=== PATIENT | female | born 1970 | race Hispanic/Latino ===

== ENCOUNTER 2017-07-22 21:19 | Emergency (ER) | payer BC ==
[~2017-07-22] VITALS: Ht 170.2 cm; Wt 122.5 kg
[~2017-07-22 21:19] MED LIST: AMLODIPINE BESY10 MG PO; AMOXICILLIN500 M1 PO; GLYBURIDE-METF1 EAC1 PO; MAGNESIUM500 MG PO; MICARDIS40 MG PO; NORVASC10 MG PO
--- OUTSIDE RECORDS SUMMARY | 2017-07-22 21:22 | XMS REPORT ---
Author Author [facility] Address Unknown Phone Unavailable Care Team Providers Care Superintendent Maintenance Name Role Phone BENI HOWARD Unavailable Unavailable Problems This patient has no known problems. Allergies, Adverse Reactions, Alerts This patient has no known allergies or adverse reactions. Medications This patient has no known medications. Results Test Description Test Time Test Comments Text Results Atomic Results Result Comments CT ABDOMEN/PELVIS WO [place] [id number] Patient Name: JACQUI GREEN MR #: [id number] : 1970 Age/Sex: 46/F Req #: [id number] Adm Physician: Ordered by: BENI HOWARD MD Report #: [id number] Location: ER Room/Bed: ___ Procedure: [id number] CT/CT ABDOMEN/PELVIS WO Exam Date: 03/05/17 Exam Time: 2325 REPORT STATUS: Signed EXAM: CT ABDOMEN AND PELVIS without IV CONTRAST DATE: 03/05/2017 10:40 PM Time stamp on Exam: 2321 hours INDICATION: Right flank pain COMPARISON: None TECHNIQUE: The abdomen and pelvis were scanned using a multidetector helical scanner. Coronal and sagittal reformations were obtained. Renal stone protocol performed. IV Contrast: None Oral Contrast: None CTDIvol has been reviewed. It is below the limits set by the Radiation Protocol Committee (RPC) . FINDINGS: LOWER THORAX: No consolidations LIVER: No masses BILIARY: The gallbladder has been removed. No ductal dilation. SPLEEN: No masses PANCREAS: No masses ADRENALS: No nodules RIGHT KIDNEY: Nonobstructing 5 mm and 2 mm stones in the inferior pole of the right kidney. LEFT KIDNEY: 8 mm nonobstructing stone in the superior pole of the left kidney. GI TRACT: No distention, wall thickening or evidence of obstruction. Normal appendix. VESSELS: Unremarkable PERITONEUM/ RETROPERITONEUM: No free air or fluid LYMPH NODES: No lymphadenopathy REPRODUCTIVE ORGANS: Unremarkable BLADDER: Unremarkable SOFT TISSUES: Unremarkable BONES: No suspicious bone lesions. IMPRESSION: Bilateral nephrolithiasis. No ureteral stones. No hydronephrosis. Signed by: Dr. Bozena Doty M.D. on 03/05/2017 11:44 PM Dictated By: BOZENA DOTY MD [id number] Transcribed By: DANIEL on 03/05/170 COPY TO: BENI HOWARD MD
[2017-07-22 22:17] LABS: BILIRUBIN,URINE NEGATIVE (NEGATIVE); CLARITY,URINE CLEAR (CLEAR); COLOR,URINE YELLOW (YELLOW); KETONES,URINE NEGATIVE (NEGATIVE); LEUKOCYTE ESTERASE ,URINE NEGATIVE (NEGATIVE); NITRITE,URINE NEGATIVE (NEGATIVE); PROTEIN,URINE DIPSTICK NEGATIVE (NEGATIVE); URINE UROBILINOGEN 0.2 mg/dL (0.2 - 1)
[2017-07-22 22:34] LABS: BACTERIA,URINE RARE /HPF; EPITHELIAL CELLS,URINE FEW /LPF; MUCUS,URINE FEW (RARE); RBC,URINE 0-5 /HPF (0-5); WBC,URINE (MAN) 0-5 /HPF (0-5)
[2017-07-22] MEDS ORDERED: NIFEDIPINE 10 MG CAP PO STA (23:10)
[2017-07-22] MEDS ORDERED: NIFEDIPINE 10 MG CAP ONE (23:12)
[2017-07-23 02:32] VITALS: BP 139/80
== END 2017-07-23 02:32 | disposition home or self-care (01) ==
LOC: ER 21:19
DX: M54.5 Low back pain (principal); I10 Essential (primary) hypertension; E11.9 Type 2 diabetes mellitus without complications; Z87.442 Personal history of urinary calculi
CPT/HCPCS: 81001; 87086; 99284

== ENCOUNTER → 2018-12-14 | Outpatient (CLI) | payer SELFPAY ==
--- NOTE | 2018-12-14 14:33 | Diagnostic Imaging Report ---
Exam: Bilateral Ankle Series. History: Osteoarthritis Comparison: None Findings: 3 views of the right ankle and 3 views of the left ankle were obtained. Left ankle: No acute fracture or dislocation. The ankle mortise is intact and symmetric. There is mild soft tissue swelling. Mild degenerative changes of the tibiotalar joint with posterior osteophyte formation. Prominent plantar calcaneal spur. Degenerative changes involve the midfoot. No significant ankle joint effusion. Right ankle:No acute fracture or dislocation. The ankle mortise is intact and symmetric. There is mild soft tissue swelling. Mild degenerative changes of the tibiotalar joint. Prominent plantar calcaneal spur. No significant ankle joint effusion. Impression: No acute osseous injury. Mild tibiotalar and mid foot degenerative changes bilaterally. Bilateral prominent lateral calcaneal spur. Signed by: Sohan Mixon MD on 12/14/2018 2:30 PM
== END ==
LOC: RAD 13:04
PROVIDERS: ATTEND Internal Medicine
DX: M19.072 Primary osteoarthritis, left ankle and foot (principal); M19.071 Primary osteoarthritis, right ankle and foot

== ENCOUNTER → 2020-03-08 | Outpatient (CLI) | payer BC | LOC: MAMMO 10:09 | PROVIDERS: ATTEND Internal Medicine | DX: Z12.31 Encounter for screening mammogram for malignant neoplasm of breast (principal) | CPT/HCPCS: 77067 ==

== ENCOUNTER 2021-08-28 23:23 | Observation (INO) | payer SELFPAY ==
[~2021-08-28] VITALS: Ht 170.2 cm; Wt 122.5 kg
[2021-08-28] MEDS ORDERED: ASPIRIN 81 MG CHEW TAB PO ONE (23:30)
[2021-08-28 23:42] LABS: BASOPHILS % 0.4 % (0.0-1.0); EOSINOPHILS # (AUTO) 0.1 (0.0-0.4); EOSINOPHILS % 0.8 % (0.0-6.0); HEMATOCRIT 36.3 % (34.2-44.1); HEMOGLOBIN 11.8 g/dL (12.0-16.0); LYMPHOCYTES # (AUTO) 2.1 (1.0-3.2); LYMPHOCYTES % 28.3 % (18.0-39.1); MEAN CORPUSCULAR HEMOGLOBIN 29.1 pg (28-32); MEAN CORPUSCULAR HGB CONC 32.5 g/dL (31-35); MEAN CORPUSCULAR VOLUME 89.4 fL (81-99); MONOCYTES # (AUTO) 0.7 (0.2-0.8); MONOCYTES % 8.9 % (4.4-11.3); NEUTROPHILS # (AUTO) 4.6 (2.1-6.9); NEUTROPHILS % 61.3 % (38.7-80.0); PLATELET COUNT 157 x10e3/uL (140-360); RED BLOOD COUNT 4.06 x10e6/uL (3.6-5.1); RED CELL DISTRIBUTION WIDTH 14.6 % (11.7-14.4)
[2021-08-28 23:54] LABS: CLARITY,URINE CLEAR (CLEAR); COLOR,URINE YELLOW (YELLOW); KETONES,URINE NEGATIVE (NEGATIVE); LEUKOCYTE ESTERASE ,URINE NEGATIVE (NEGATIVE); NITRITE,URINE NEGATIVE (NEGATIVE); PROTEIN,URINE DIPSTICK NEGATIVE (NEGATIVE); URINE UROBILINOGEN 0.2 mg/dL (0.2 - 1)
[2021-08-28 23:57] LABS: BACTERIA,URINE FEW /HPF; EPITHELIAL CELLS,URINE FEW /LPF; WBC,URINE (MAN) 0-5 /HPF (0-5)
[2021-08-29] VITALS (10 sets, daily range): BP systolic 133–177; BP diastolic 54–108
[2021-08-29 00:02] LABS: ALBUMIN/GLOBULIN RATIO 0.7 (0.8-2.0); ANION GAP 14.9 mmol/L (8-16); CALCIUM 8.4 mg/dL (8.4-10.2); CREATININE, SERUM 1.01 mg/dL (0.57-1.11); POTASSIUM 3.9 mmol/L (3.5-5.1)
[2021-08-29] MEDS ORDERED: SODIUM CHLORIDE 0.9% 1000ML 1,000 ML IV STA (00:07)
[2021-08-29] MEDS ORDERED: INSULIN REGULAR, HUMAN 100 UNIT/1 ML IV STA (00:07)
[2021-08-29 00:08] LABS: CREATINE KINASE MB 1.1 ng/mL (0-5.0)
[2021-08-29] MEDS ORDERED: Morphine 4mg Syringe 4 MG/ML INJ IV PRN (01:30)
[2021-08-29] MEDS ORDERED: ONDANSETRON HCL INJ 2MG/ML 2ML 2 MG/ML VIAL IV PRN ×2 (01:30→13:00)
[2021-08-29] MEDS ORDERED: IOPAMIDOL 370 MG/ML 200 ML INFUS..BTL INJ ONE (01:34)
[2021-08-29] MEDS ORDERED: SODIUM CHLORIDE 0.9% 50ML 150 ML ONE (01:34)
[2021-08-29] MEDS ORDERED: CLONIDINE HCL 0.1 MG TAB PO PRN (04:15)
[2021-08-29] MEDS: ACYCLOVIR 200 MG CAP PO SCH ×5 (04:19→21:26)
[2021-08-29] MEDS ORDERED: LOSARTAN-HCTZ1 EACH PO (04:36)
[2021-08-29 09:18] LABS: CREATINE KINASE MB 0.9 ng/mL (0-5.0)
[2021-08-29] MEDS ORDERED: DEXTROSE 50% SYRINGE 50 ML IV PRN ×2 (10:45→13:00)
[2021-08-29] MEDS ORDERED: INSULIN LISPRO 100 UNIT/1 ML 3ML VIAL SQ SCH (11:30)
[2021-08-29 11:57] LABS: CHOL/HDL RATIO 4.8 (3.0-3.6)
[2021-08-29] MEDS ORDERED: CLOPIDOGREL BISULFATE 75 MG TAB PO ONE (12:15)
[2021-08-29 12:17] LABS: THYROID STIMULATING HORMONE 1.41 uIU/mL (0.350-4.940)
[2021-08-29] MEDS ORDERED: ALBUTEROL/IPRATROPIUM 3 ML NEB NEB PRN (13:00)
[2021-08-29] MEDS ORDERED: DIPHENHYDRAMINE HCL 25 MG CAP PO PRN (13:00)
[2021-08-29] MEDS ORDERED: BENZONATATE 100 MG CAP PO PRN (13:00)
[2021-08-29] MEDS ORDERED: LIDOCAINE 4% PATCH TP PRN (13:00)
[2021-08-29] MEDS ORDERED: ACETAMINOPHEN 325 MG TAB PO PRN (13:00)
[2021-08-29] MEDS ORDERED: SIMETHICONE 80 MG CHEW PO PRN (13:00)
[2021-08-29] MEDS ORDERED: DOCUSATE SODIUM 100 MG CAP PO PRN (13:00)
[2021-08-29] MEDS ORDERED: POTASSIUM CHLORIDE 20 MEQ TAB CR PO PRN (13:00)
[2021-08-29] MEDS ORDERED: HYDRALAZINE HCL 20 MG/ML VIAL IV PRN (13:00)
[2021-08-29] MEDS: METOPROLOL SUCCINATE 25 MG TAB XL PO SCH (13:16)
[2021-08-29] MEDS: GLIPIZIDE 5 MG TAB ER PO SCH (13:59)
[2021-08-29] MEDS: PIOGLITAZONE HCL 15 MG TAB PO SCH (13:59)
[2021-08-29 16:02] LABS: CREATINE KINASE 25 IU/L (29-168)
[2021-08-29] MEDS: ENOXAPARIN SOD INJ 40 MG/0.4 ML SYR SC SCH (17:30)
[2021-08-29] MEDS ORDERED: MELATONIN 5 MG TABLET PO PRN (21:00)
[2021-08-29] MEDS ORDERED: ATORVASTATIN 40 MG TAB PO SCH (21:00)
[2021-08-30] MEDS: ACYCLOVIR 200 MG CAP PO SCH ×4 (04:58→17:12)
[2021-08-30 05:37] VITALS: BP 146/80
[2021-08-30 05:54] LABS: BASOPHILS # (AUTO) 0.1 (0.0-0.1); BASOPHILS % 0.6 % (0.0-1.0); EOSINOPHILS # (AUTO) 0.2 (0.0-0.4); EOSINOPHILS % 2.2 % (0.0-6.0); HEMATOCRIT 35.2 % (34.2-44.1); HEMOGLOBIN 11.4 g/dL (12.0-16.0); LYMPHOCYTES # (AUTO) 3.6 (1.0-3.2); LYMPHOCYTES % 44.2 % (18.0-39.1); MEAN CORPUSCULAR HEMOGLOBIN 29.1 pg (28-32); MEAN CORPUSCULAR HGB CONC 32.4 g/dL (31-35); MEAN CORPUSCULAR VOLUME 89.8 fL (81-99); MONOCYTES # (AUTO) 0.7 (0.2-0.8); NEUTROPHILS # (AUTO) 3.6 (2.1-6.9); NEUTROPHILS % 44.8 % (38.7-80.0); PLATELET COUNT 149 x10e3/uL (140-360); RED BLOOD COUNT 3.92 x10e6/uL (3.6-5.1); RED CELL DISTRIBUTION WIDTH 14.6 % (11.7-14.4)
[2021-08-30 06:30] LABS: ALBUMIN 2.7 g/dL (3.5-5.0); ALBUMIN/GLOBULIN RATIO 0.7 (0.8-2.0); ANION GAP 9.5 mmol/L (8-16); CALCIUM 8.3 mg/dL (8.4-10.2); CREATININE, SERUM 0.72 mg/dL (0.57-1.11); POTASSIUM 3.5 mmol/L (3.5-5.1)
[2021-08-30 06:46] LABS: CHOL/HDL RATIO 5.6 (3.0-3.6)
[2021-08-30 07:09] LABS: THYROID STIMULATING HORMONE 0.796 uIU/mL (0.350-4.940)
[2021-08-30] MEDS ORDERED: PANTOPRAZOLE SOD 40 MG TABEC PO SCH (07:30)
[2021-08-30 07:54] VITALS: BP 149/81
[2021-08-30 08:22] VITALS: BP 149/81
[2021-08-30] MEDS: GLIPIZIDE 5 MG TAB ER PO SCH (08:55)
[2021-08-30] MEDS: PIOGLITAZONE HCL 15 MG TAB PO SCH (08:55)
[2021-08-30] MEDS: METOPROLOL SUCCINATE 25 MG TAB XL PO SCH (08:57)
[2021-08-30] MEDS ORDERED: LOSARTAN POTASSIUM 25 MG TAB PO SCH (09:00)
[2021-08-30] MEDS ORDERED: LOSARTAN POTASSIUM 100 MG TAB PO SCH (09:00)
[2021-08-30] MEDS ORDERED: NON-FORMULARY MEDICATION (Losartan/Hydrochlorothiazide (Losartan-Hctz 50-12.5 Mg Tab) 1 TA PO SCH (09:00)
[2021-08-30] MEDS ORDERED: CLOPIDOGREL BISULFATE 75 MG TAB PO SCH (09:00)
[2021-08-30] MEDS ORDERED: HYDROCHLOROTHIAZIDE 25 MG TAB PO SCH ×2 (09:00)
[2021-08-30 11:46] VITALS: BP 135/77
[2021-08-30] MEDS ORDERED: SODIUM CHLORIDE 0.9% 50ML 50 ML ONE (14:12)
[2021-08-30] MEDS ORDERED: IOPAMIDOL 370 MG/ML 200 ML INFUS..BTL INJ ONE (14:12)
[2021-08-30 15:07] VITALS: BP 131/72
[2021-08-30] MEDS ORDERED: ONDANSETRON HCL 4 MG ORAL DISINTEGRATING TAB PO PRN (15:15)
[2021-08-30] MEDS: ENOXAPARIN SOD INJ 40 MG/0.4 ML SYR SC SCH (17:12)
== END 2021-08-30 18:17 | disposition home or self-care (01) ==
LOC: ER 23:27 → ERHOLD 08-29 01:47 → MED/SURG3 08-29 03:40
PROVIDERS: ADMIT Internal Medicine; ATTEND Internal Medicine
DX: E11.65 Type 2 diabetes mellitus with hyperglycemia (principal); R07.9 Chest pain, unspecified; A60.09 Herpesviral infection of other urogenital tract; I25.10 Atherosclerotic heart disease of native coronary artery without angina pectoris; T38.3X6A Underdosing of insulin and oral hypoglycemic [antidiabetic] drugs, initial encounter; Z91.19 Patient's noncompliance with other medical treatment and regimen; E66.01 Morbid (severe) obesity due to excess calories; I10 Essential (primary) hypertension; Z68.41 Body mass index [BMI] 40.0-44.9, adult; Z83.3 Family history of diabetes mellitus; Z83.2 Family history of diseases of the blood and blood-forming organs and certain disorders involving the immune mechanism; Z20.822 Contact with and (suspected) exposure to COVID-19
CPT/HCPCS: 36415 ×3; 71045; 71260 ×2; 80053 ×2; 80061 ×2; 81001; 81025; 82550 ×2; 82553 ×2; 82948 ×2; 83036; 83880; 84443 ×2; 84484 ×2; 85025 ×2; 85379; 93005; 93306; 94799 ×2; 99284; G0378 ×2; J1650 ×2; J1817; J7030; Q9967 ×2; S0164; U0002

== ENCOUNTER 2022-01-16 03:00 | Emergency (ER) | payer SELFPAY ==
[~2022-01-16] VITALS: Ht 170.2 cm; Wt 102.5 kg
[~2022-01-16 03:00] MED LIST changes: +LOSARTAN-HCTZ1 EACH PO
[2022-01-16] MEDS ORDERED: IBUPROFEN 600 MG TAB PO STA (03:06)
[2022-01-16] MEDS ORDERED: DIPHENHYDRAMINE HCL 25 MG CAP PO ONE (03:15)
== END 2022-01-16 03:19 | disposition home or self-care (01) ==
LOC: ER 03:01
DX: S60.562A Insect bite (nonvenomous) of left hand, initial encounter (principal); W57.XXXA Bitten or stung by nonvenomous insect and other nonvenomous arthropods, initial encounter; I10 Essential (primary) hypertension; E11.9 Type 2 diabetes mellitus without complications; I25.10 Atherosclerotic heart disease of native coronary artery without angina pectoris
CPT/HCPCS: 99283

== ENCOUNTER 2024-08-18 20:02 | Emergency (ER) | payer BC, OTHER ==
[~2024-08-18] VITALS: Ht 170.2 cm; Wt 102.5 kg
[2024-08-18 20:08] VITALS: PULSE 80; RESP 18; TEMP 98.2
[2024-08-18 20:37] LABS: BILIRUBIN,URINE NEGATIVE (NEGATIVE); CLARITY,URINE CLEAR (CLEAR); COLOR,URINE YELLOW (YELLOW); GLUCOSE, URINE 500 (NEGATIVE); KETONES,URINE NEGATIVE (NEGATIVE); LEUKOCYTE ESTERASE ,URINE NEGATIVE (NEGATIVE); NITRITE,URINE NEGATIVE (NEGATIVE); PH,URINE 5.5 (5 - 7); PROTEIN,URINE DIPSTICK NEGATIVE (NEGATIVE); URINE UROBILINOGEN 0.2 mg/dL (0.2 - 1)
[2024-08-18 20:46] LABS: RBC,URINE 0-5 /HPF (0-5)
[2024-08-18] MEDS ORDERED: ONDANSETRON ODT4 MG SL (21:37)
[2024-08-18] MEDS ORDERED: ENULOSE10 GM/15 M PO (21:37)
[2024-08-18 21:57] VITALS: BP 121/63; PULSE 71; RESP 18; TEMP 98.3; O2SAT 98
== END 2024-08-18 21:41 | disposition home or self-care (01) ==
LOC: ER 20:13
DX: K59.00 Constipation, unspecified (principal); R10.12 Left upper quadrant pain; I10 Essential (primary) hypertension; E11.9 Type 2 diabetes mellitus without complications; I25.10 Atherosclerotic heart disease of native coronary artery without angina pectoris; F32.A Depression, unspecified
CPT/HCPCS: 74018; 81001; 99283